=== PATIENT | female | born 1985 | race Caucasian/White ===

== ENCOUNTER 2017-07-12 12:14 | Emergency (ER) | payer OTHER ==
[~2017-07-12] VITALS: Ht 160 cm; Wt 74.3 kg
[~2017-07-12 12:14] MED LIST: CLC100 PO; IBUP600T44 PO; LEVE500T PO; LRS10 PO; LYR50 PO; OXYC-57 PO
[2017-07-12 12:20] VITALS: Ht 160 cm; Wt 74.3 kg
[2017-07-12] MEDS ORDERED: PROPARACAINE HCL 0.5% OP SOLN 15 ML BTL ONE (12:45)
--- NOTE | 2017-07-12 12:50 | EMERGENCY ROOM VISIT NOTE ---
ED Visit Note First contact with patient: 12:35 CHIEF COMPLAINT: Eye pain HISTORY OF PRESENT ILLNESS: This 32-year-old female patient presents to the emergency department ambulatory complaining of pain in the left eye last night. There has been a constant moderate pain and irritation, redness and tearing in the eye. There is a mild blurring of vision at times and light bothers the eye. The vision has none been decreased over all. The patient does wear contacts. The patient rates the pain as severe and 8/10. The patient has taken out her contacts but does not recall any specific injury. The patient has not had previous injuries to this eye. REVIEW OF SYSTEMS: A 10 system review of systems was completed with positives and pertinent negatives listed in the HPI. ALLERGIES: Gabapentin MEDICATIONS: See nursing notes PMH: Patient denies SOCIAL HISTORY: The patient is visiting from out of town for a PHYSICAL EXAM: Vital Signs: Reviewed Nurse's notes, vital signs stable. Visual acuity 20/40 in the right and 20/20 in the left without correction. GENERAL: This is a 32-year-old female, in no acute distress, but who is uncomfortable from the eye problem. Well-developed well-nourished. EYES: The pupils are equal round and reactive to light and accommodation. EOMs are full and without tenderness. There is discharge of clear tears from the left eye which is injected. There is no foreign body visible under the eyelid even after lid eversion. Funduscopic exam reveals no hemorrhages, papilledema, or other abnormalities. No foreign body was seen embedded in the cornea under slit lamp exam. The cornea was clear and no hyphema was seen. Fluorescein uptake was not observed with ultraviolet light . EMERGENCY DEPARTMENT COURSE: I examined the patient. Alcaine 2 drops were placed in the patient's left eye. A slit lamp exam was performed as above. The patient presents with significant pain and severe photophobia. She has direct photophobia but not consensual photophobia. The Alcaine did not relieve her pain whatsoever. The patient does not have any obvious corneal ulceration or abrasion. She does not have any rash. She does not have any hyphema or hypopyon. The pupils are equal, round, reactive. The intraocular pressure was slightly elevated in the left at 24 and was 16 in the right. The case was discussed with Dr. Muro who recommends prednisolone drops and Cyclogyl drops 4 times daily. He states that she can be seen in the office today. I advised the patient that she could be seen in the office today. She declines and states that she would like to try the drops first and if she does not have any improvement she will follow with ophthalmology. She should return immediately with any worsening symptoms. Otherwise, she should follow up with ophthalmology for further evaluation and management. The patient was discharged home in good condition. Problem List Medical Problems: (1) PCOS (polycystic ovarian syndrome) Status: Chronic Current/Historical Medications No Active Prescriptions or Reported Meds Allergies Coded Allergies: Gabapentin (Unverified Allergy, Severe, SEIZURES, 07/12/17) Vital Signs Date Time Temp Pulse Resp B/P (MAP) Pulse Ox O2 Delivery O2 Flow Rate FiO2 07/12/17 13:49 36.5 75 18 111/76 97 07/12/17 12:20 36.5 75 20 111/76 97 Room Air Medications Administered Medications (Trade) Dose Ordered Sig/Mel Route Start Time Stop Time Status Last Admin Dose Admin Prednisolone Acetate (Pred Forte 1% Oph Susp) 1 drops NOW ONCE OP 07/12/17 13:15 07/12/17 13:16 DC 07/12/17 13:15 1 DROPS Cyclopentolate HCl (Cyclogyl 1% Oph Soln) 1 drops ONE OP 07/12/17 13:15 07/12/17 14:11 DC 07/12/17 13:38 1 DROPS Departure Information Impression Primary Impression: Iritis Dispostion Home / Self-Care Condition GOOD Prescriptions No Active Prescriptions or Reported Meds Referrals No Doctor, Assigned (PCP) Vinay Muro MD Patient Instructions FERNANDA Hoyt, My [facility] Additional Instructions Prednisolone 2 drops in the left eye every 6 hours for 5-7 days Cyclogyl 1 drop every 6 hours--this will dilate your pupil Follow-up with ophthalmology for further evaluation and management. Dr. Muro' s office can see you today. Return with any worsening symptoms
[2017-07-12] MEDS ORDERED: CYCLOPENTOLATE HCL 1% OP SOLN 2 ML BTL OP SCH (13:15)
[2017-07-12] MEDS ORDERED: PrednisoLONE ACET 1% OP SUSP 5 ML BTL OP ONE (13:15)
[2017-07-12 13:49] VITALS: BP 111/76; PULSE 75; TEMP 36.5; O2SAT 97
== END 2017-07-12 13:50 | disposition home or self-care (01) ==
LOC: C.EDB 12:17 → C.EDD 13:50
DX: H20.9 Unspecified iridocyclitis (principal); E28.2 Polycystic ovarian syndrome; Z88.8 Allergy status to other drugs, medicaments and biological substances